=== PATIENT | male | born 1995 | race Caucasian/White ===

== ENCOUNTER 2024-12-11 14:21 | Emergency (ER) | payer MEDICAID ==
[~2024-12-11] VITALS: Ht 170.2 cm; Wt 86.0 kg
[2024-12-11 14:48] VITALS: O2SAT 96
[2024-12-11] MEDS: METHYLPREDNISOLONE SOD SUCC 125MG/2ML (ACT-O-VIAL) IV ONE (16:35)
[2024-12-11] MEDS: KETOROLAC 15MG/ML VIAL IV ONE (16:35)
[2024-12-11 17:20] LABS: BASOPHILS % 0.3 % (0.0-2.0); EOSINOPHILS % 0.3 % (0.0-5.0); HEMATOCRIT. 40.1 % (42.0-52.0); HEMOGLOBIN. 13.9 g/dL (14.0-18.0); LYMPHOCYTES % 11.7 % (20.0-50.0); MEAN PLATELET VOLUME 8.1 fl (7.4-10.4); MONOCYTES % 10.0 % (2.0-8.0); NEUTROPHILS % 77.7 % (40.0-76.0); PLATELET 336 x1000/uL (130-400); RED BLOOD CELL COUNT 4.71 mill/uL (4.7-6.1); RED CELL DISTRIBUTION WIDTH 13.0 % (11.6-14.6)
[2024-12-11 17:35] LABS: CREATININE 0.8 mg/dL (0.6-1.3)
[2024-12-11 17:36] LABS: UREA NITROGEN BLOOD 7 mg/dL (9-23)
[2024-12-11 17:37] LABS: ASPARTATE AMINOTRANSFERASE 21 IU/L (<34)
[2024-12-11 17:38] LABS: BILIRUBIN DIRECT 0.3 mg/dL (<=3.0); BILIRUBIN TOTAL 1.1 mg/dL (0.1-1.0); PROTEIN TOTAL 7.9 g/dL (6.0-8.3)
[2024-12-11] MEDS ORDERED: AMOX1TAB16 MT (18:17)
[2024-12-11] MEDS ORDERED: IBUP-1455 MT (18:17)
[2024-12-11 18:38] VITALS: BP 120/80; PULSE 88; RESP 15; TEMP 36.9; O2SAT 98
[2024-12-11] MEDS ORDERED: IOHEXOL-300 100 ML BOTTLE ONE (23:14)
== END 2024-12-11 18:39 | disposition home or self-care (01) ==
LOC: ER 14:34 → CMPBEDREQ 12-12 07:46
DX: J03.90 Acute tonsillitis, unspecified (principal); R13.10 Dysphagia, unspecified; Z79.52 Long term (current) use of systemic steroids; Z79.899 Other long term (current) drug therapy
CPT/HCPCS: 99285; 96374; 70491; 96375; 80076; 80048; 85025; 36415; J1885; J2919; Q9967